=== PATIENT | male | born 1970 | race Caucasian/White ===

== ENCOUNTER 2017-10-29 14:10 | Emergency (ER) | payer BC ==
[~2017-10-29 14:10] MED LIST: ISOVUE-370 76%-LOCM 1 ML ONE
[2017-10-29 17:55] LABS: #Eosinphils 0.1 thou/uL (0.0-0.7); #Lymphocytes 1.7 thou/uL (1.20-3.40); #Monocytes 0.4 thou/uL (0.11-0.59); #Neutrophils 4.1 thou/uL (1.40-6.50); %Basophils 0.6 % (0.0-1.0); %Eosinophils 2.1 % (0.0-10.0); %Lymphocytes 27.3 % (21.0-51.0); %Monocytes 5.9 % (0.0-10.0); %Neutrophils 64.1 % (42.0-75.0); Hemoglobin 15.2 g/dL (14.0-18.0); Mean Corpuscular HGB CONC 34.9 g/dL (32.0-36.0); Mean Corpuscular Hemoglobin 33.3 pg (27.0-31.0); Mean Corpuscular Volume 95.6 fl (80.0-94.0); Mean Platelet Volume 7.4 fL (7.4-10.4); Platelet Count 203 thou/uL (130-400); RBC Distribution Width 11.5 % (11.5-14.5); Red Blood Cell (RBC) Count 4.55 mill/uL (4.70-6.10); White Blood Cell (WBC) Count 6.4 thou/uL (4.8-10.8)
[2017-10-29 18:11] LABS: ALT (SGPT) 25 U/L (8-55); AST (SGOT) 19 U/L (5-34); Albumin 4.5 g/dL (3.5-5.0); Alkaline Phosphatase 66 U/L (40-150); Anion Gap 8 mmol/L (10-20); BUN (Urea Nitrogen) 14 mg/dL (8.9-20.6); Bilirubin, Total 0.7 mg/dL (0.2-1.2); Calc. Creatinine Clearance 0 mL/min (70-130); Calcium 9.2 mg/dL (7.8-10.44); Carbon Dioxide 31 mmol/L (22-29); Chloride 104 mmol/L (98-107); Estimated GFR-MDRD Greater than 90; Globulin 2.9 g/dL (2.4-3.5); Glucose 85 mg/dL (70-105); Protein, Total 7.4 g/dL (6.0-8.3); Sodium 139 mmol/L (136-145)
--- NOTE | 2017-10-29 19:34 | CT ---
CT ORBITS: History: Left sided maxillary swelling. Technique: Contrast enhanced CT images obtained with coronal and sagittal reconstructions. FINDINGS: There appears to be a possible sialolith in the right submandibular region. No significant evidence of facial fractures. The sinuses are well aerated. There does appear to be an area of defect in the right lamina papyracea extending to the right middle ethmoid air cells. This m ay represent old trauma to the medial right orbital wall. There does appear to be an area of infraorb ital left premaxillary soft tissue asymmetry and edema, most compatible with cellulitis in the left i nfraorbital soft tissues. No obvious evidence of abscess seen. IMPRESSION: No evidence of facial abscess seen. POS: [facility]
== END 2017-10-29 20:01 | disposition home or self-care (01) ==
LOC: ERS 14:10
DX: L03.211 Cellulitis of face (principal)
CPT/HCPCS: 70487; 80053; 85025

== ENCOUNTER 2023-01-25 09:54 | Outpatient (CLI) | payer BC | END 2023-01-25 09:55 | disposition home or self-care (01) | LOC: RAD 09:54 | PROVIDERS: ATTEND Family Medicine | DX: M25.512 Pain in left shoulder (principal) ==